=== PATIENT | male | born 1945 | race Caucasian/White ===

== ENCOUNTER 2016-12-29 16:07 | Emergency (ER) | payer OTHER ==
[2016-12-29] MEDS ORDERED: LIDOCAINE 1%/EPINEPHRINE 20ML VIAL IJ ONE (16:30)
[2016-12-29] MEDS ORDERED: DIPH,PERTUSS(ACELL),TET VAC/PF 0.5 ML DISP.SYRIN IM ONE (16:35)
[2016-12-29] MEDS ORDERED: TRIPLE ANTIBIOTIC OINTMENT PAC 1 PACKET TOP ONE (16:55)
--- NOTE | 2016-12-29 17:08 | ED Physician Documentation ---
Fall - HISTORIAN Historian: patient, spouse - HPI Stated Complaint: laceration Chief Complaint: Fall Onset: just prior to arrival Where: other ([facility]) Context: tripped, fell from standing. denies: fainted, fell from sitting r: moderate Associated Symptoms:: no loss of consciousness Location of Pain/Injury: head (scalp), upper extremity (right elbow) Further Comments: yes (71 year old male patient brought in via EMS after he tripped and fell at the [facility]. Patient and spouse denies any LOC, states patient tripped. Patient denies any dizziness, SOB, CP, or nausea.) - ROS CONST: no problems NEURO: denies: dizziness, anxiety MS/SKIN/LYMPH: denies: weakness, numbness, neck pain, back pain, ankle swelling , leg swelling, rash, other EYES/ENT: none CVS/RESP: none GI/: denies: problems urinating, nausea, vomiting, other - PAST HX Past History: COPD, other (Lung CA, HTN) Allergies/Adverse Reactions: Allergies Allergy/AdvReac Type Severity Reaction Status Date / Time No Known Allergies Allergy Verified 12/29/16 16:15 Home Medications: Ambulatory Orders Medication Instructions Recorded Atenolol [Atenolol] 100 mg PO DAILY 12/29/16 Hydrochlorothiazide [Hydrodiuril] 25 mg PO DAILY 12/29/16 Megestrol Acetate [Megace] 20 ml PO DAILY 12/29/16 - SOCIAL HX Smoking History: cigarettes - FAMILY HX Family History: denies: none - VITAL SIGNS Vital Signs: Vital Signs Temp Pulse Resp BP Pulse Ox 98.4 F 70 18 174/111 98 12/29/16 16:27 12/29/16 16:27 12/29/16 16:27 12/29/16 16:27 12/29/16 16:27 - REVIEWED ASSESSMENTS Nursing Assessment Reviewed: Yes Vitals Reviewed: Yes Procedures Wound Location: head (4 cm laceration), upper extremity (right elbow - 5 cm laceration with avulsion) Wound's Depth, Shape: linear, flap (elbow) Irrigated w/ Saline (ccs): 500 Betadine Prep?: No (chlorhexidine) Anesthesia: Lidocaine w/ Epi Volume of Anesthetic: 10 total Wound Repaired With: sutures (elbow), lucia (scalp x 7) Suture Size/Type: 5:0 Number of Sutures: 3 Layer Closure?: No Sterile Dressing Applied?: Yes Progress: Scalp wound cleaned with chlorhexidine and NS irrigation. Pressure held to hematoma to decrease edema and approximate edges. Lidocaine 1% with epi to wound, closed with 7 lucia. Right elbow laceration cleaned with chlorhexidine and NS irrigation. Closed proximal end with 5.0 sutures x 3; steri strips to distal end. Dressing applied by nursing. ED Results Lab/Radiology - Orders Orders: ED Orders Category Date Time Status Apply/change dressing NOW Care 12/29/16 16:55 Ordered Diph,Pertuss(Acell),Tet Vac/Pf [Adacel] Med 12/29/16 16:35 Once 0.5 ml IM .ONCE ONE Lidocaine 1%/Epinephrine [Xylocaine 1%-EPI 1:100,000] Med 12/29/16 16:30 Once 5 ml IJ NOW ONE Triple Antibiotic Ointment Pac [Neosporin Packet] Med 12/29/16 16:55 Once 2 packet TOP NOW ONE Fall Physical Exam - Physical Exam General Appearance: alert, mild distress Head: trauma (4 cm laceration to occipital area of scalp with 5 cm hematoma) Eye: MARIO, EOMI, lids & conjunct. nml ENT: nml external inspection Resp/CVS: chest non-tender, no ecchymosis, breath sounds nml, no resp. distress , heart sounds nml Abdomen: soft, no organomegaly, normal bowel sounds, no abdominal bruit, no distension Neuro: oriented x3, CN's nml as tested, sensation nml, motor nml, mood/affect nml, field captain nml, reflexes nml, field captain symmetrical Skin: color nml, no rash, nml palp., dry, other (skin tear to right elbow 5 cm with avulsion) Extremities: atraumatic, pelvis stable, hips non-tender, no pedal edema, nml ROM , nml color/temp - Susan Coma Score Eyes Open: Spontaneous Speech: Oriented Motor: Obeys Commands Discharge Clincal Impression: Fall Qualifiers: Encounter type: initial encounter Qualified Code(s): W19.XXXA - Unspecified fall, initial encounter Laceration of scalp Qualifiers: Encounter type: initial encounter Qualified Code(s): S01.01XA - Laceration without foreign body of scalp, initial encounter Laceration of elbow Qualifiers: Encounter type: initial encounter Laterality: right Qualified Code(s): S51.011A - Laceration without foreign body of right elbow, initial encounter Referrals: Giorgio Márquez DO [Primary Care Provider] - 2 Days Additional Instructions: You can wash or shower after 24 hours. Do not soak the wound in water and make sure it is dry afterwards (gently pat the area dry with a clean towel). To remove your dressing, gently pull it off. If needed, you can dampen it with water then gently pull it off. Clean the laceration twice a day with hibiclens and rinse with water clean away any scabbed area Apply thin coat of antibiotic ointment after cleaning the wound. Cover with non-adherent bandage if able. If you have pain, take simple pain relief medication such as Tylenol or ibuprofen. Have your lucia and stitches removed at your doctors office in 7-10 days. Home Medications: Ambulatory Orders Atenolol [Atenolol] 100 mg PO DAILY 12/29/16 Hydrochlorothiazide [Hydrodiuril] 25 mg PO DAILY 12/29/16 Megestrol Acetate [Megace] 20 ml PO DAILY 12/29/16 Condition: Stable Disposition: 01 HOME, SELF-CARE Decision to Admit: NO Decision Time: 16:58
[2016-12-29 17:11] VITALS: BP 148/80
== END 2016-12-29 17:09 | disposition home or self-care (01) ==
LOC: ED 16:07
DX: S01.01XA Laceration without foreign body of scalp, initial encounter (principal); S51.011A Laceration without foreign body of right elbow, initial encounter; W19.XXXA Unspecified fall, initial encounter; Y93.9 Activity, unspecified; Y99.9 Unspecified external cause status
CPT/HCPCS: 90715; J7030; 12004; 90471; 99283; 99284